=== PATIENT | male | born 1950 | race Caucasian/White ===

== ENCOUNTER 2016-11-11 14:59 | Observation (INO) | payer BC, MEDICARE ==
[~2016-11-11] VITALS: Ht 175.3 cm; Wt 84.0 kg
[2016-11-11 15:50] LABS: BASO % 0.1 % (0.2-1.2); EOS # 0.1 10_X3_uL (0.0-0.5); EOS % 0.7 % (0.8-7.0); GRAN # 8.1 10_X3_uL (1.8-5.4); GRAN % 93.2 % (34.0-67.9); HEMATOCRIT 40.4 % (40-51); HEMOGLOBIN 14.4 g/dL (13.7-17.5); LYMPH # 0.2 10_X3_uL (1.3-3.6); LYMPH % 2.1 % (21.8-53.1); MEAN CORPUSCULAR HEMOGLOBIN 32.7 pg (27.0-33.0); MEAN CORPUSCULAR HGB CONC 35.6 g/dL (32.0-36.0); MEAN CORPUSCULAR VOLUME 91.6 fL (79-92); MEAN PLATELET VOLUME 10.2 fl (7.5-11.5); MONO # 0.3 10_X3_uL (0.3-0.8); MONO % 3.9 % (5.3-12.2); PLATELET COUNT 169 x10_3/uL (163-337); RED BLOOD COUNT 4.41 x10_6/uL (4.6-6.1); RED CELL DISTRIBUTION WIDTH 12.5 % (11.6-14.4); WHITE BLOOD COUNT 8.7 x10_3/uL (4.2-9.1)
[2016-11-11 16:35] LABS: ALBUMIN 4.7 gm/dL (3.4-5.0); ALKALINE PHOSPHATASE 55 U/L (50-136); ALT/SGPT 26 U/L (7.53-40.17); AST/SGOT 26 U/L (6.66-35.34); BILIRUBIN,TOTAL 0.82 mg/dL (0.0-1.0); CALCIUM 9.2 mg/dL (8.7-10.7); CARBON DIOXIDE 22 mmol/L (21-32); GLUCOSE,RANDOM 134 mg/dL (70-99); SODIUM 137 mmol/L (136-145); TOTAL PROTEIN 7.6 gm/dL (6.4-8.2)
[2016-11-11 16:49] LABS: BLOOD UREA NITROGEN 25 mg/dL (7-18)
[2016-11-11 16:50] LABS: AMYLASE 35 U/L (15.62-74.58); LIPASE 28 U/L (6.75-60.75)
[2016-11-12 15:31] LABS: PH,URINE 6.5 (5.0 - 9.0); URINE BILIRUBIN NEGATIVE (NEGATIVE); URINE BLOOD NEGATIVE (NEGATIVE); URINE GLUCOSE (UA) NORMAL (NORMAL); URINE KETONE NEGATIVE (NEGATIVE); URINE LEUKOCYTE ESTERASE NEGATIVE (NEGATIVE); URINE NITRATE NEGATIVE (NEGATIVE); URINE PROTEIN NEGATIVE (NEGATIVE); UROBILINOGEN NORMAL mg/dL (<1.0)
[2016-11-13 07:13] LABS: HEMATOCRIT 33.4 % (40-51); HEMOGLOBIN 11.4 g/dL (13.7-17.5); MEAN CORPUSCULAR HEMOGLOBIN 31.9 pg (27.0-33.0); MEAN CORPUSCULAR HGB CONC 34.1 g/dL (32.0-36.0); MEAN CORPUSCULAR VOLUME 93.6 fL (79-92); MEAN PLATELET VOLUME 9.9 fl (7.5-11.5); RED BLOOD COUNT 3.57 x10_6/uL (4.6-6.1); RED CELL DISTRIBUTION WIDTH 12.7 % (11.6-14.4); WHITE BLOOD COUNT 5.6 x10_3/uL (4.2-9.1)
[2016-11-13 07:29] LABS: ALKALINE PHOSPHATASE 41 U/L (50-136); ALT/SGPT 20 U/L (7.53-40.17); AST/SGOT 20 U/L (6.66-35.34); BILIRUBIN,TOTAL 0.45 mg/dL (0.0-1.0); BLOOD UREA NITROGEN 10 mg/dL (7-18); CALCIUM 8.2 mg/dL (8.7-10.7); CARBON DIOXIDE 23 mmol/L (21-32); GLUCOSE,RANDOM 111 mg/dL (70-99); POTASSIUM 3.6 mmol/L (3.5-5.1); SODIUM 140 mmol/L (136-145); TOTAL PROTEIN 6.3 gm/dL (6.4-8.2)
[2016-11-14 09:13] LABS: HEMATOCRIT 31.5 % (40-51); MEAN CORPUSCULAR HEMOGLOBIN 32.4 pg (27.0-33.0); MEAN CORPUSCULAR HGB CONC 34.9 g/dL (32.0-36.0); MEAN CORPUSCULAR VOLUME 92.6 fL (79-92); MEAN PLATELET VOLUME 9.9 fl (7.5-11.5); RED BLOOD COUNT 3.4 x10_6/uL (4.6-6.1); RED CELL DISTRIBUTION WIDTH 12.2 % (11.6-14.4); WHITE BLOOD COUNT 7.8 x10_3/uL (4.2-9.1)
[2016-11-14 09:24] LABS: BLOOD UREA NITROGEN 16 mg/dL (7-18); CALCIUM 8.5 mg/dL (8.7-10.7); CARBON DIOXIDE 20 mmol/L (21-32); CREATININE 1.2 mg/dL (0.6-1.3); GLUCOSE,RANDOM 171 mg/dL (70-99); POTASSIUM 3.8 mmol/L (3.5-5.1); SODIUM 134 mmol/L (136-145)
== END 2016-11-14 11:15 | disposition home or self-care (01) ==
LOC: ER 14:59 → MS 17:31
PROVIDERS: Family Medicine; General Practice; ADMIT Family Medicine
PROC: 0FT44ZZ Resection of Gallbladder, Percutaneous Endoscopic Approach (ICD-10-PCS; principal; 2016-11-13)
PROC: 3E0234Z Introduction of Serum, Toxoid and Vaccine into Muscle, Percutaneous Approach (ICD-10-PCS; principal; 2016-11-13)
DX: K80.12 Calculus of gallbladder with acute and chronic cholecystitis without obstruction (principal); J18.9 Pneumonia, unspecified organism; K52.9 Noninfective gastroenteritis and colitis, unspecified; R01.1 Cardiac murmur, unspecified; I10 Essential (primary) hypertension; M54.9 Dorsalgia, unspecified; G89.29 Other chronic pain; R42 Dizziness and giddiness; R52 Pain, unspecified; J84.9 Interstitial pulmonary disease, unspecified; K21.9 Gastro-esophageal reflux disease without esophagitis; Z98.890 Other specified postprocedural states; R10.11 Right upper quadrant pain; Z79.899 Other long term (current) drug therapy; Z79.1 Long term (current) use of non-steroidal anti-inflammatories (NSAID); Z79.891 Long term (current) use of opiate analgesic; Z82.49 Family history of ischemic heart disease and other diseases of the circulatory system; Z87.891 Personal history of nicotine dependence; Z23 Encounter for immunization
CPT/HCPCS: 36415; 71010; 76705; 76770; 80048; 80053; 81003; 82150; 83605; 83690; 85025; 86308; 86738; 87040; 87045; 87400; 87449; 90732; 93005; 93306; 94640; 96361; 96365; 96366; 96367; 96368; 96372; 96375; 96376; 99070; 99285-25; G0009; G0378; J2704; J2710; J3010; J7050